=== PATIENT | male | born 1980 | race Caucasian/White ===

== ENCOUNTER 2017-09-11 12:23 | Emergency (ER) | payer SELFPAY ==
[~2017-09-11] VITALS: Ht 167.6 cm; Wt 74.8 kg
[2017-09-11] MEDS ORDERED: ONDANSETRON HCL 4 MG ORAL DISINTEGRATING TAB PO ONE (13:00)
[2017-09-11] MEDS ORDERED: LIDOCAINE VISC 2% SOLN 15 ML UDC PO ONE (13:00)
[2017-09-11] MEDS ORDERED: MAGNESIUM/ALUMINUM/SIMETHICONE 30 ML UDC PO ONE (13:00)
[2017-09-11] MEDS ORDERED: BELLADONNA ALK/PHENOBARBITAL 5 ML UDC PO ONE (13:00)
[2017-09-11 13:11] VITALS: BP 130/77
== END 2017-09-11 13:24 | disposition home or self-care (01) ==
LOC: FSED 12:23
DX: R10.13 Epigastric pain (principal); R11.2 Nausea with vomiting, unspecified; F14.10 Cocaine abuse, uncomplicated; F12.10 Cannabis abuse, uncomplicated
CPT/HCPCS: 99283